=== PATIENT | male | born 1990 | race Caucasian/White ===

== ENCOUNTER → 2023-08-16 | Day surgery (SDC) | payer OTHER ==
[~2023-08-16] VITALS: Ht 170.2 cm; Wt 72.6 kg
[~2023-08-16] MED LIST: FENTANYL CITRATE/PF 50MCG/ML 2ML VIAL ONE; LIDOCAINE HCL 1% 10 MG/ML 10ML VIAL ONE; SODIUM BICARBONATE 4% (2.4MEQ) 5ML VIAL IV ONE
[2023-08-16 10:00] VITALS: BP 103/64; PULSE 80; RESP 12
[2023-08-16 10:15] VITALS: BP 99/39; PULSE 84; RESP 12
[2023-08-16] MEDS: FENTANYL CITRATE/PF 50MCG/ML 2ML VIAL IV ONE (10:15)
[2023-08-16 10:20] VITALS: BP 95/54; PULSE 84; RESP 12
[2023-08-16 10:25] VITALS: BP_SYST 103; BP_SYST 92; BP_DIAS 57; BP_DIAS 64; PULSE 90; RESP 12; RESP 16
[2023-08-16 10:30] VITALS: BP 91/55; PULSE 79; RESP 12
[2023-08-16 10:34] VITALS: BP_SYST 103; BP_SYST 91; BP_DIAS 55; BP_DIAS 64; RESP 12
== END | disposition home or self-care (01) ==
LOC: RAD 09:16
PROVIDERS: ATTEND Surgery
DX: K65.1 Peritoneal abscess (principal); Z79.899 Other long term (current) drug therapy; Z98.890 Other specified postprocedural states
CPT/HCPCS: 49406; J3010; J3490 ×2; C1729; C1769; 77012; 99152; 99153; L8514; G0500